=== PATIENT | male | born 1950 | race Caucasian/White ===

== ENCOUNTER 2018-03-21 07:45 | Emergency (ER) | payer SELFPAY ==
--- NOTE | 2018-03-21 08:12 | EDM.PDOC ---
ED HPI GENERAL MEDICAL PROBLEM - General Chief Complaint: ENT Problem Stated Complaint: foreign object right ear Time Seen by Provider: 03/21/18 08:01 Source of Information: Reports: Patient History Limitations: Reports: No Limitations - History of Present Illness INITIAL COMMENTS - FREE TEXT/NARRATIVE: 67 YO WM presents to ER with foreign body sensation in his right ear. Pt reports he woke from sleep with a "fluttering". Pt reports no associated pain. Pt denies any recent illness. Denies hearing loss or tinnitis. No fever/chills, no other complaints. Onset: Sudden Duration: Hour(s): (1) Location: Reports: Other (right ear) Quality: Reports: Other (fluttering) Severity: Mild Improves with: Reports: None Worsens with: Reports: None Associated Symptoms: Reports: No Other Symptoms - Related Data Allergies Allergy/AdvReac Type Severity Reaction Status Date / Time bee venom protein (honey bee) Allergy Hives Verified 03/21/18 08:01 Home Meds: Home Meds Losartan [Cozaar] 50 mg PO DAILY 03/21/18 [History] Simvastatin 20 mg PO BEDTIME 03/21/18 [History] amLODIPine Besylate [Amlodipine Besylate] 10 mg PO DAILY 03/21/18 [History] ED ROS ENT - Review of Systems Review Of Systems: See Below Constitutional: Reports: No Symptoms HEENT: Reports: No Symptoms. Denies: Vertigo Respiratory: Reports: No Symptoms Cardiovascular: Reports: No Symptoms Endocrine: Reports: No Symptoms GI/Abdominal: Reports: No Symptoms : Reports: No Symptoms Musculoskeletal: Reports: No Symptoms Skin: Reports: No Symptoms Neurological: Reports: No Symptoms Psychiatric: Reports: No Symptoms Hematologic/Lymphatic: Reports: No Symptoms Immunologic: Reports: No Symptoms ED EXAM, ENT - Physical Exam Exam: See Below Exam Limited By: No Limitations General Appearance: Alert, WD/WN, No Apparent Distress Ears: Normal External Exam, Hearing Grossly Normal, Normal TMs, Canal Discharge. No: Normal Canal, Hearing Loss, Auricular Tenderness, Mastoid Tenderness, Canal Blood, Canal Foreign Body, Canal Swelling Nose: Normal Inspection, Normal Mucousa, No Blood Mouth/Throat: Normal Inspection, Normal Gums, Normal Lips, Normal Oropharynx, Normal Teeth Head: Atraumatic, Normocephalic Neck: Normal Inspection, Supple, Non-Tender, Full Range of Motion Respiratory/Chest: No Respiratory Distress, Lungs Clear, Normal Breath Sounds, No Accessory Muscle Use, Chest Non-Tender Cardiovascular: Normal Peripheral Pulses, Regular Rate, Rhythm, No Edema, No Gallop, No JVD, No Murmur, No Rub GI/Abdominal: Normal Bowel Sounds, Soft, Non-Tender, No Organomegaly, No Distention, No Abnormal Bruit, No Mass Back: Normal Inspection, Full Range of Motion Extremities: Normal Inspection, Normal Range of Motion, Non-Tender, No Pedal Edema, Normal Capillary Refill Neurological: Alert, Oriented, CN II-XII Intact, Normal Cognition, Normal Gait, Normal Reflexes, No Motor/Sensory Deficits Psychiatric: Normal Affect Skin: Warm, Dry, Intact, Normal Color, No Rash Lymphatic: No Adenopathy Departure - Departure Time of Disposition: 08:16 Disposition: Home, Self-Care 01 Clinical Impression: Otitis externa Qualifiers: Otitis externa type: unspecified type Chronicity: acute Laterality: right Qualified Code(s): H60.501 - Unspecified acute noninfective otitis externa, right ear - Discharge Information Instructions: Ear Drops, Adult, Otitis Externa Forms: ED Department Discharge Additional Instructions: 1. cortisporin otic drops Q4 x 3 days 2. discharge home 3. return to ER for worsening symptoms 4. follow up with PCP as needed - Assessment/Plan Assessment:: 1. right early otitis externa Plan: 1. cortisporin otic drops Q4 x 3 days 2. discharge home 3. return to ER for worsening symptoms 4. follow up with PCP as needed
[2018-03-21] MEDS ORDERED: Hydrocortisone/Neomycin/Polymyxin B Otic Soln 10 ML Bottle EARRT SCH (08:30)
== END 2018-03-21 08:25 | disposition home or self-care (01) ==
LOC: KA.ED 07:45
DX: H60.501 Unspecified acute noninfective otitis externa, right ear (principal); Z91.030 Bee allergy status
CPT/HCPCS: 99282; A9270